=== PATIENT | female | born 1985 | race Two or more races ===

== ENCOUNTER 2020-10-25 05:11 | Day surgery (SDC) | payer OTHER ==
[2020-10-25] MEDS ORDERED: AMOX-CLAV 875-1 EAC1 PO (11:26)
[2020-10-25] MEDS ORDERED: CODE1TAB37 PO (11:27)
[2020-10-25] MEDS ORDERED: IBU600 MG PO (11:28)
== END 2020-10-25 14:15 | disposition home or self-care (01) ==
LOC: CIR.AMB 05:11
PROVIDERS: ATTEND Obstetrics & Gynecology
DX: N80.1 Endometriosis of ovary (principal); Z20.822 Contact with and (suspected) exposure to COVID-19